=== PATIENT | male | born 1995 | race Hispanic/Latino ===

== ENCOUNTER 2017-10-29 10:00 | Emergency (ER) | payer OTHER, SELFPAY ==
[2017-10-29] MEDS ORDERED: Lorazepam 2 MG/ML VIAL ONE (10:25)
[2017-10-29] MEDS ORDERED: Ondansetron HCl/PF 4 MG/2 ML Vial ONE (10:26)
== END 2017-10-29 11:44 | disposition home or self-care (01) ==
LOC: ERS 10:00
DX: F10.239 Alcohol dependence with withdrawal, unspecified (principal); R11.2 Nausea with vomiting, unspecified; F17.290 Nicotine dependence, other tobacco product, uncomplicated
CPT/HCPCS: 93005; 96361; 96374; 96375; J2060; J2405

== ENCOUNTER 2018-08-28 13:14 | Emergency (ER) | payer SELFPAY ==
[2018-08-28] MEDS ORDERED: Acetaminophen 500 MG TAB ONE (13:41)
[2018-08-28] MEDS ORDERED: Adacel (T-DAP) 0.5 ML SYRINGE ONE (14:04)
== END 2018-08-28 14:25 | disposition home or self-care (01) ==
LOC: ERS 13:14
DX: S00.01XA Abrasion of scalp, initial encounter (principal); F17.210 Nicotine dependence, cigarettes, uncomplicated; J45.909 Unspecified asthma, uncomplicated; W22.8XXA Striking against or struck by other objects, initial encounter
CPT/HCPCS: 90471; 90715

== ENCOUNTER 2019-08-29 04:36 | Emergency (ER) | payer SELFPAY | END 2019-08-29 04:45 | disposition home or self-care (01) | LOC: ERS 04:36 | DX: Z03.89 Encounter for observation for other suspected diseases and conditions ruled out (principal); F17.210 Nicotine dependence, cigarettes, uncomplicated | CPT/HCPCS: 99282 ==

== ENCOUNTER 2019-12-09 22:15 | Emergency (ER) | payer OTHER, SELFPAY ==
--- NOTE | 2019-12-09 23:02 | RAD ---
EXAM: Chest PA and lateral: HISTORY: Pain upon coughing or yawning. COMPARISON: None FINDINGS: Heart: Normal cardiac silhouette Aorta: Unremarkable Pulmonary vessels: Normal Costophrenic angles: Costophrenic angles are clear. Lungs: No consolidation or masses. Pneumothorax: No pneumothorax Osseous structures: No osseous abnormalities IMPRESSION: No acute cardiopulmonary process.
[2019-12-09] MEDS ORDERED: Ibuprofen 800 MG TAB ONE (23:10)
[2019-12-10 14:10] LABS: SARS-CoV-2 MS2 Positive; SARS-CoV-2 N Gene Negative; SARS-CoV-2 S Gene Negative; SARS-CoV-2 by NAA Not Detected (NotDetected); SARS-CoV-2 orf1ab Negative
== END 2019-12-09 23:17 | disposition home or self-care (01) ==
LOC: ERS 22:15
DX: S23.41XA Sprain of ribs, initial encounter (principal); R05 Cough; Z20.828 Contact with and (suspected) exposure to other viral communicable diseases; F17.210 Nicotine dependence, cigarettes, uncomplicated; X58.XXXA Exposure to other specified factors, initial encounter
CPT/HCPCS: 71046; 87635; U0003

== ENCOUNTER 2020-07-12 19:52 | Emergency (ER) | payer OTHER, SELFPAY ==
[2020-07-12] MEDS ORDERED: Ibuprofen 200 MG TAB ONE (20:28)
== END 2020-07-12 21:45 | disposition home or self-care (01) ==
LOC: ERS 19:52
DX: S90.02XA Contusion of left ankle, initial encounter (principal); M25.571 Pain in right ankle and joints of right foot; F17.210 Nicotine dependence, cigarettes, uncomplicated; W20.8XXA Other cause of strike by thrown, projected or falling object, initial encounter